=== PATIENT | female | born 1965 | race Caucasian/White ===

== ENCOUNTER 2023-11-21 02:59 | Emergency (ER) | payer SELFPAY ==
[~2023-11-21] VITALS: Ht 170.2 cm; Wt 63.5 kg
[2023-11-21] MEDS ORDERED: TETRAcaine 5 ML BOTTLE ONE (04:07)
[2023-11-21] MEDS ORDERED: HYDROMORPHONE 1 MG/1 ML DISP.SYRIN ONE (04:08)
[2023-11-21] MEDS ORDERED: ONDANSETRON 4 MG TAB.RAPDIS ONE (04:12)
[2023-11-21] MEDS: HYDROMORPHONE 1 MG/1 ML DISP.SYRIN IM ONE (04:20)
[2023-11-21] MEDS: FLUORESCEIN SODIUM OPHTH 1 EA STRIP OP ONE (04:30)
[2023-11-21] MEDS: TETRACAINE HCL 0.5% OPHTALMIC 15 ML BOTTLE OP ONE (04:30)
[2023-11-21] MEDS: ONDANSETRON 4 MG TAB.RAPDIS PO ONE (04:30)
[2023-11-21 05:54] VITALS: BP 136/77; TEMP 98.5; O2SAT 97
== END 2023-11-21 05:54 | disposition home or self-care (01) ==
LOC: ER 03:04
DX: H57.12 Ocular pain, left eye (principal)
CPT/HCPCS: 99285; 70486; 96372; Q0162; J1170